=== PATIENT | female | born 1960 | race Caucasian/White ===

== ENCOUNTER 2018-06-21 14:52 | Emergency (ER) | payer BC ==
[2018-06-21] MEDS: ONDANSETRON 4 MG ORAL DISINTEGRATING TAB (Q0162 PER 1MG) PO (17:44)
[2018-06-21] MEDS: NORCO, ANEXSIA 5/325MG TABLET (HYDROcodone/ACETAMINOPHEN) PO (17:45)
== END 2018-06-21 18:54 | disposition home or self-care (01) ==
LOC: M ED 14:52
DX: S82.832A Other fracture of upper and lower end of left fibula, initial encounter for closed fracture (principal); W00.9XXA Unspecified fall due to ice and snow, initial encounter; Y92.410 Unspecified street and highway as the place of occurrence of the external cause; Y93.9 Activity, unspecified; Y99.9 Unspecified external cause status; E11.9 Type 2 diabetes mellitus without complications; I10 Essential (primary) hypertension; Z79.84 Long term (current) use of oral hypoglycemic drugs; Z79.899 Other long term (current) drug therapy; Z88.0 Allergy status to penicillin; Z88.8 Allergy status to other drugs, medicaments and biological substances
CPT/HCPCS: Q0162

== ENCOUNTER 2018-06-24 09:47 | Day surgery (SDC) | payer BC ==
[~2018-06-24 09:47] MED LIST: LEVOTHYROXINE 125MCG TABLET (0.125MG) PO; LIDOCAINE 1% MDV 20ML VIAL SQ; LOSARTAN 50 MG TAB PO; MULTIVITAMINS/MINERALS THERAP 1 TAB PO; OMEPRAZOLE 20 MG CAP PO; metFORMIN (GLUCOPHAGE) 500 MG TAB PO
[2018-06-24] MEDS ORDERED: ROPIvacaine 0.5% 30 ML INJECTION (J2795 PER 1MG) (09:48)
[2018-06-24] MEDS ORDERED: LIDOCAINE 1% MDV 20ML VIAL (09:48)
[2018-06-24] MEDS ORDERED: dexameTHASONE 10 MG/1 ML VIAL PRES.FREE (J1100) (09:48)
[2018-06-24] MEDS ORDERED: LR 1,000 ML IV ×3 (10:00→13:45)
[2018-06-24] MEDS ORDERED: LIDOCAINE 2% INJ 100 MG/5 ML SDV (FOR ANES.) As Ordered (10:30)
[2018-06-24] MEDS ORDERED: fentaNYL 100 MCG/2 ML INJECTION (J3010) As Ordered ×2 (10:30→10:50)
[2018-06-24] MEDS ORDERED: MIDAZOLAM INJ 2 MG/2 ML VIAL (J2250) As Ordered ×2 (10:30→10:50)
[2018-06-24] MEDS ORDERED: PROPOFOL 200 MG/20 ML VIAL As Ordered (10:30)
[2018-06-24 10:47] LABS: BEDSIDE GLUCOSE 115 MG/DL (70-105)
[2018-06-24] MEDS: fentaNYL 100 MCG/2 ML INJECTION (J3010) IV ×5 (11:04→14:05)
[2018-06-24] MEDS: MIDAZOLAM INJ 2 MG/2 ML VIAL (J2250) IV (11:05)
[2018-06-24] MEDS: CLINDAMYCIN INJ 900MG/6ML VIAL As Ordered (11:37)
[2018-06-24] MEDS: ceFAZolin 1GM INJ (J0690 PER 500MG) As Ordered ×2 (11:37→12:18)
[2018-06-24] MEDS ORDERED: dexameTHASONE 4 MG/ML 1ML VIAL (J1100) As Ordered (11:42)
[2018-06-24] MEDS ORDERED: ONDANSETRON 4MG/2ML VIAL (J2405) As Ordered (12:00)
[2018-06-24] MEDS: PERCOCET 5MG/325MG TAB PO ×2 (13:42→14:19)
[2018-06-24] MEDS ORDERED: PERCOCET 5MG/325MG TAB PO ×2 (13:45)
[2018-06-24] MEDS ORDERED: ONDANSETRON 4MG/2ML VIAL (J2405) IV (13:45)
[2018-06-24] MEDS ORDERED: MORPHINE 4 MG/ML 1ML VIAL/SYRINGE (J2270) IV (13:45)
[2018-06-24] MEDS: ONDANSETRON 4MG/2ML VIAL (J2405) IV (13:50)
[2018-06-24] MEDS: HYDROMORPHONE HCL 0.5 MG/ 0.5 ML SYRINGE (J1170 PER 1) IV (14:10)
[2018-06-24] MEDS ORDERED: METOCLOPRAMIDE INJ 10MG/2ML VIAL (J2765) As Ordered (14:30)
[2018-06-24] MEDS: METOCLOPRAMIDE INJ 10MG/2ML VIAL (J2765) IV (15:45)
== END 2018-06-24 16:50 | disposition home or self-care (01) ==
LOC: M SDC 09:47
DX: S82.892A Other fracture of left lower leg, initial encounter for closed fracture (principal); W01.0XXA Fall on same level from slipping, tripping and stumbling without subsequent striking against object, initial encounter; Y92.89 Other specified places as the place of occurrence of the external cause; Y93.9 Activity, unspecified; Y99.9 Unspecified external cause status; I10 Essential (primary) hypertension; E11.9 Type 2 diabetes mellitus without complications; E03.9 Hypothyroidism, unspecified; K21.9 Gastro-esophageal reflux disease without esophagitis; Z88.0 Allergy status to penicillin; F32.9 Major depressive disorder, single episode, unspecified; F41.9 Anxiety disorder, unspecified; Z79.84 Long term (current) use of oral hypoglycemic drugs; Z79.899 Other long term (current) drug therapy
CPT/HCPCS: 27814

== ENCOUNTER → 2022-05-20 | Outpatient (CLI) | payer BC ==
[~2022-05-20] MED LIST changes: +BUSP5TA PO; +ELIQ5TAB PO; +ENOX40IN3 SC; +GABA-283 PO; +HYDR-3363 PO; +HYDR-3713 PO; +HYDR50TA70 PO; +Hydrocodone-Acetamin; +IBUP-1022 PO; +LEVO125T4 PO; +LEVO150T7; +LEVO150T7 PO; -LEVOTHYROXINE 125MCG TABLET (0.125MG) PO; -LIDOCAINE 1% MDV 20ML VIAL SQ; +LOSA50TA28 PO; -LOSARTAN 50 MG TAB PO; +METF-839 PO; -MULTIVITAMINS/MINERALS THERAP 1 TAB PO; +OMEP-173 PO; +OMEP40CA4 PO; -OMEPRAZOLE 20 MG CAP PO; +ONDA4TAB6 PO; +POTA540T PO; +POTA99TA PO; +VITMTA PO; +WARF-23 PO; +WARF4TAB52 PO; +eye promise; -metFORMIN (GLUCOPHAGE) 500 MG TAB PO
== END ==
LOC: M RAD 10:09
PROVIDERS: ATTEND Specialist
DX: R22.1 Localized swelling, mass and lump, neck (principal); M54.2 Cervicalgia